=== PATIENT | female | born 1980 | race Caucasian/White ===

== ENCOUNTER → 2016-10-08 | Day surgery (SDC) | payer OTHER ==
[~2016-10-08] VITALS: Ht 160 cm; Wt 70.3 kg
[~2016-10-08] MED LIST: AMLODIPINE BESYL5 M1 PO; HYDROCHLOROTHIA25 M1 PO; VALSARTAN160 M1 PO
--- NOTE | 2016-10-08 14:17 | Operative Report ---
Operative/Inv Procedure Report Surgery Date: 10/08/16 Name of Procedure: Laparoscopy, lysis of adhesions, bilateral salpingectomies, hysteroscopy, dilation and curettage, NovaSure endometrial ablation Pre-Operative Diagnosis: Menorrhagia and desires permanent sterilization Post-Operative Diagnosis: Same Estimated Blood Loss: less than 50ml Surgeon/Laminating Machine Offbearer: TERESO SALMERON DO Anesthesia: general endotracheal tube IV Fluids: 1400 mL Urine Output: 145 mL Drains: None Specimens: Bilateral fallopian tubes, endometrial curettage and endocervical curettage Complications: None Condition: Good Operative Indication: This patient is a 36-year-old 2 para 2 who presents with menorrhagia and desired to undergo permanent sterilization. She previously was controlled with control pills, however, she is now requiring 3 different antihypertensives. She was offered nonestrogen hormonal manipulation of her menstrual cycles or endometrial ablation. She desires to proceed with more definitive ablation procedure. She also desires permanent sterilization. The risks, benefits, alternatives were discussed with her prior to proceeding. She was informed of the risk of bleeding, infection, injury to other organs, need for additional procedures complication occur, possible laparotomy, failed procedure, risk of ectopic if failed sterilization, failed ablation, incomplete procedure. Rather than a bilateral tubal fulguration she was in favor of bilateral salpingectomy as literature shown a decrease risk of ovarian cancer in the future in women who have undergone such procedure. She stated verbal orders standing of all the above and desires to proceed. Operative/Procedure Note Note: The patient was taken to the operating room where anesthesia was obtained without difficulty. She was placed in the dorsal lithotomy position and examined under anesthesia. She was then prepared and draped in usual sterile fashion. Speculum was placed inside the patient's vagina and the anterior lip of the cervix was then grasped with a single-tooth tenaculum. Her uterus was sounded to 7 cm. Cervical length was obtained with an 6, her Hegar dilator and found to be 3 cm. A HUMI manipulator was then inserted into the uterine cavity without difficulty. Attention was then turned to the patient's abdomen where laparoscopy was performed. A 10 mm infraumbilical skin incision was made with a scalpel. It was carried down to the fascia with the scalpel. The fascia was grasped between 2 Belen clamps and incised with the scalpel. S retractors were then placed into the incision and the peritoneum was identified grasped and entered sharply with Metzenbaum scissors. Intra-abdominal placement was confirmed. The fascia was tagged with 0 Vicryl suture and a Trocar Was Inserted without Difficulty. Again Intra-Abdominal Placement Was Confirmed with the Laparoscope. Pneumoperitoneum Was Then Obtained with 3 L of CO2 Gas. A Brief Survey Patient's Abdomen and Pelvis Was Then Performed. She Was Noted to Have an Omental Adhesion in the Midline Approximately [place] between the Uterus and Her Umbilicus. Small Omental Adhesions Were Also Noted in the Upper Abdomen As Well. Should Normal- Appearing Liver Edge. There Was Absent. A 5 Mm in left lower quadrant incision was made with a scalpel and a 5 mm trocar was inserted under direct visualization. 10 mm incision was made in the right lower quadrant followed by insertion of a 12 mm trocar under direct visualization. The anterior aspect of the uterus and a small abrasion while inserting the right lower quadrant trocar and small bleeding was noted. This was observed for the remainder of the laparoscopy. The patient had a normal-appearing uterus, normal-appearing fallopian tubes bilaterally, normal anterior cul-de-sac and posterior cul-de-sac , she had a functional simple appearing left ovarian cyst may be 1.5 cm in size and a normal-appearing right ovary. Attention was paid to the left fallopian tube which was grasped with an atraumatic grasper and the fallopian tube was slowly excised by cauterizing and cutting the mesosalpinx with the LigaSure device. The left fallopian tube was grasped and removed through the right lower quadrant port without difficulty. Hemostasis was noted. An attempt was made to aspirate the small simple-appearing follicular cyst on the left ovary however this proved difficult due to the smaller size and the possibility of bowel injury site aborted and attempted this procedure. Attention was then turned to the patient's right fallopian tube which was similarly grasped with atraumatic graspers and the right fallopian tube was excised with the LigaSure device and easily removed from the right lower quadrant port. The serosal abrasion to the anterior aspect of the uterus still had a small amount of oozing for which hemostasis was obtained with me. I placed Surgicel. As it was quite superficial I did not suspect that this would interfere with NovaSure procedure. I left the laparoscopic ports in place and then proceeded with the hysteroscopy , D&C and NovaSure ablation. She was then turned to the patient's vagina where a Graves speculum was again placed inside the patient's vagina and the uterine manipulator was removed. The anterior lip of the cervix was then grasped with a single-tooth tenaculum and the cervix was dilated to 6 mm with Hegar dilators. Diagnostic hysteroscopy was then performed using normal saline as distention media. She was noted to have thick endometrium and normal-appearing bilateral tubal ostia. No obvious polyps or fibroids were noted. Hysteroscope was removed and the NovaSure device was placed in the uterine cavity and seated. Total uterine length was 4 cm and uterine width was 3.6 cm. The NovaSure device was activated and she passed the CO2 perforation test. The patient was then performed for 1 minute and 20 seconds. All insurance removed from the patient's vagina. Attention was then turned back to the patient's abdomen where laparoscopy was again performed and it demonstrated excellent hemostasis of bilateral salpingectomy pedicles. The serosal abrasion on the anterior portion of the uterus was noted to be hemostatic. Suction irrigation was performed and again excellent hemostasis was noted. All instruments removed from patient's abdomen. Fascia of the right lower quadrant and umbilical incisions were reapproximated 0 Vicryl. Skin was closed with 3-0 Biosyn. Excellent hemostasis was noted. The Villar catheter was then removed. The patient was awoken from anesthesia. All sponge, lap counts, needle counts were correct 2 and the patient was taken to the recovery area in stable condition. Findings: Uterine sound length of 7 cm. Length of 3 cm. Uterine length of 4 cm. Uterine width of 3.6 cm. Hysteroscopic findings demonstrated thick endometrium, normal-appearing bilateral ostia, no evidence of uterine fibroids or polyps. Laparoscopic findings demonstrated normal-appearing bilateral fallopian tubes, normal-appearing uterus, small functional left ovarian cyst which appeared benign, normal right ovary, normal-appearing liver and, omental adhesionsThe small midline omental adhesion Discharge Disposition: PACU CC: TERESO SALMERON DO
== END ==
LOC: STS 02:56
DX: Z30.2 Encounter for sterilization (principal); N92.0 Excessive and frequent menstruation with regular cycle; K66.0 Peritoneal adhesions (postprocedural) (postinfection); R93.8 Abnormal findings on diagnostic imaging of other specified body structures; I10 Essential (primary) hypertension; E07.9 Disorder of thyroid, unspecified
CPT/HCPCS: 36415; 81025; 88302; 88305; J2250; J2405; J3250